=== PATIENT | female | born 2000 | race Hispanic/Latino ===

== ENCOUNTER 2021-12-21 19:07 | Emergency (ER) | payer OTHER ==
[~2021-12-21] VITALS: Ht 167.6 cm; Wt 69.9 kg
[2021-12-21 22:29] VITALS: BP 100/71
== END 2021-12-21 21:47 | disposition home or self-care (01) ==
LOC: FSED 19:23
DX: R05.9 Cough, unspecified (principal); J06.9 Acute upper respiratory infection, unspecified; B34.9 Viral infection, unspecified
CPT/HCPCS: 99283